=== PATIENT | female | born 1950 | race Caucasian/White ===

== ENCOUNTER 2016-09-29 10:38 | Outpatient (CLI) | payer OTHER | END 2016-09-29 20:57 | disposition home or self-care (01) | LOC: SRD 10:38 | PROVIDERS: ATTEND Internal Medicine | DX: M17.11 Unilateral primary osteoarthritis, right knee (principal); M85.88 Other specified disorders of bone density and structure, other site; R05 Cough | CPT/HCPCS: 71020-TC; 73564 ==

== ENCOUNTER 2017-04-24 00:14 | Emergency (ER) | payer OTHER ==
[~2017-04-24] VITALS: Ht 154.9 cm; Wt 74.8 kg
[2017-04-24 00:14] VITALS: BP_SYST 144
[2017-04-24] MEDS ORDERED: NACL 0.9% 1,000 ML IV ONE (00:19)
[2017-04-24] MEDS ORDERED: ASPIRIN 81 MG TAB.CHEW PO ONE (00:30)
[2017-04-24] MEDS ORDERED: LORazepam 2 MG/ML VIAL (FOR ER USE) IVP ONE (00:30)
[2017-04-24 00:45] LABS: BASOPHILS % (AUTO) 0.6 % (0.0-2.0); EOSINOPHILS # (AUTO) 0.2 K/uL (0.0-0.4); EOSINOPHILS % (AUTO) 2.6 % (0.0-4.0); HEMATOCRIT 33.8 % (36-48); HEMOGLOBIN 11.2 g/dL (12.0-16.0); LYMPHOCYTES # (AUTO) 1.4 K/uL (1.0-5.5); LYMPHOCYTES % (AUTO) 18.3 % (20.5-51.5); MEAN CORPUSCULAR HEMOGLOBIN 29 pg (27-31); MEAN CORPUSCULAR HGB CONC 33 % (32-36); MEAN CORPUSCULAR VOLUME 87 fL (79.0-98.0); MONOCYTES # (AUTO) 0.7 K/uL (0.0-1.0); NEUTROPHILS # (AUTO) 5.2 K/uL (1.8-7.7); NEUTROPHILS % (AUTO) 69.5 % (40.0-70.0); PLATELET COUNT (AUTO) 247 K/uL (130-430); RED CELL DISTRIBUTION WIDTH 12.8 % (9.0-15.0); WHITE BLOOD COUNT (AUTO) 7.5 K/uL (4.8-10.8)
[2017-04-24 00:58] LABS: ANION GAP 8 (5-15); CALCIUM 9.8 mg/dL (8.4-11.0); CHLORIDE 101 mmol/L (98-107); CREATININE 0.88 mg/dL (0.55-1.30); GLUCOSE 251 mg/dL (70-99); POTASSIUM 4.3 mmol/L (3.5-5.1); SODIUM SERUM 135 mmol/L (136-145); UREA NITROGEN, BLOOD 21 mg/dL (8-21)
[2017-04-24 01:01] LABS: INR 1.1 (0.8-1.2)
[2017-04-24 01:06] LABS: ALANINE AMINOTRANSFERASE 35 U/L (12-78); ALBUMIN 3.4 g/dL (3.4-4.8); ASPARTATE AMINOTRANSFERASE 24 U/L (10-37); TOTAL BILIRUBIN 0.2 mg/dL (0.0-1.0)
[2017-04-24 01:11] LABS: GFR AFRICAN AMERICAN 82 mL/min (>90)
[2017-04-24 02:15] VITALS: BP_SYST 127
== END 2017-04-24 02:15 | disposition home or self-care (01) ==
LOC: SED 00:14
DX: F41.9 Anxiety disorder, unspecified (principal); E78.00 Pure hypercholesterolemia, unspecified; I10 Essential (primary) hypertension; E11.9 Type 2 diabetes mellitus without complications; Z95.1 Presence of aortocoronary bypass graft
CPT/HCPCS: 36415; 71045; 80053; 84484; 85025; 85610; 85730; 93005; 96361; 96374; 99285; J2060; J7030